=== PATIENT | female | born 1955 | race Caucasian/White ===

== ENCOUNTER → 2018-05-18 12:38 | Outpatient (CLI) | payer OTHER, SELFPAY ==
[2018-05-18 14:28] LABS: Vitamin D,25 Hydroxy 20.5 ng/mL (29.95-100.01)
[2018-05-18 14:30] LABS: BUN 26 mg/dL (7-18); BUN/Creat Ratio 33.2 RATIO (10-20); Creatinine, Serum 0.78 mg/dL (0.55-1.02); EST Glomerular Filtration Rate 79 mL/min (>60); Est Glom Filt Rate - Afr Amer 96 mL/min (>60); Glucose 100 mg/dL (74-106); Protein, Total 7.8 g/dL (6.4-8.2)
[2018-05-18 14:31] LABS: ALB/GLOB Ratio 1.1 RATIO (0.9-2.4); AST(SGOT) 18 U/L (15-37); Alanine Aminotransfer ALT/SGPT 32 U/L (13-56); Alkaline Phosphatase 101 U/L (45-117); Anion Gap 6 (5-15); Calcium,Total 8.9 mg/dL (8.5-10.1); Chloride 105 mmol/L (98-107); Cholesterol 246 mg/dL (200); Free T3 3.6 pg/mL (2.18-3.98); Globulin 3.8 g/dL (2.2-4.2); High Density Lipoprotein 94 mg/dL; Potassium 4.2 mmol/L (3.5-5.1); Sodium Level 142 mmol/L (136-145); T4 Free Direct 0.79 ng/dL (0.76-1.46); Thyroid Stim Hormone (TSH) 0.99 uIU/mL (0.358-3.74); Triglycerides 49 mg/dL; Very Low Density Lipoprotein 10 mg/dL (5-40)
== END ==
PROVIDERS: Family Provider Family Medicine; PCP Family Medicine; Referring Provider Family Medicine; Visit Provider Family Medicine
DX: E04.1 Nontoxic single thyroid nodule (principal); R63.5 Abnormal weight gain; Z13.220 Encounter for screening for lipoid disorders; M99.01 Segmental and somatic dysfunction of cervical region
CPT/HCPCS: 36415; 80053; 80061; 82306; 84439; 84443; 84481

== ENCOUNTER → 2018-06-06 15:28 | Outpatient (CLI) | payer OTHER, SELFPAY ==
--- NOTE | 2018-06-06 15:30 | US_ITS ---
STUDY: THYROID ULTRASOUND REASON FOR EXAM: Female, 62 years old. Thyroid nodule. TECHNIQUE: Ultrasound evaluation of the thyroid was performed with real-time and static smith-scale imaging. COMPARISON: None. FINDINGS: RIGHT LOBE: The right lobe of the thyroid gland measures 4.2 x 1.5 x 1.3 cm. There is a homogeneous echotexture. There are no demonstrated solid, cystic or complex lesions. LEFT LOBE: The left lobe of the thyroid gland measures 5.1 x 3.5 x 2.9 cm. There is a 4.2 x 2.9 x 2.7 cm complex nodule that is predominantly solid within the left lobe. There appear to be one or 2 microcalcifications. There is mild increased internal vascularity. ISTHMUS: The isthmus measures 3.0 mm. The regional lymph nodes are normal. US/Thyroid IMPRESSION: 4.2 x 2.9 x 2.7 cm predominantly solid nodule within the left lobe of the gland. Electronically Signed: Rose Mary Slaughter MD at 17:24 EST Tel , Service support ,
== END ==
LOC: US 15:29
PROVIDERS: Family Provider Family Medicine; PCP Family Medicine; Referring Provider Family Medicine; Visit Provider Family Medicine
DX: E04.1 Nontoxic single thyroid nodule (principal)
CPT/HCPCS: 76536

== ENCOUNTER → 2018-10-12 16:56 | Outpatient (CLI) | payer OTHER, SELFPAY ==
[2018-10-12 18:02] LABS: Thyroid Stim Hormone (TSH) 1.79 uIU/mL (0.358-3.74)
== END ==
PROVIDERS: Family Provider Family Medicine; PCP Family Medicine; Referring Provider Otolaryngology; Visit Provider Otolaryngology
DX: D44.0 Neoplasm of uncertain behavior of thyroid gland (principal)
CPT/HCPCS: 36415; 84443

== ENCOUNTER 2018-12-07 18:32 | Emergency (ER) | payer OTHER, SELFPAY ==
[2018-12-07 18:33] VITALS: BP 118/83; PULSE 82; RESP 16; TEMP 36.2; O2SAT 100; BMI 29.2
[2018-12-07] MEDS: Lidocaine/Epi/Tetracaine 50 ML 1 APPLIC TOPICAL (19:20)
[2018-12-07] MEDS: Diphth,Pertuss(Acell),Tet Vac 0.5 ML Vial IM (19:26)
--- NOTE | 2018-12-07 19:32 | ED.DCSUM_ITS ---
- ER Visit Summary Date of Service: 12/07/18 Chief Complaint: Foreign body right foot History of Present Illness: The patient is a 62 F who presents with a foreign body in her right foot that occurred today. Patient states she was running across her deck when a wooden splinter went into the bottom of her right foot. Patient was barefoot at the time. Patient states she was unable to remove the foreign body. Patient is unsure of her last tetanus. Patient states her pain is worse with ambulation and improves with Tylenol. Patient describes her pain as a burning. Physical Examination: Vital signs are stable. Patient is afebrile. Patient is in no acute distress. Musculoskeletal exam reveals a puncture wound over the plantar aspect of the right foot. There is no active bleeding noted. Sensation was intact to light touch in all digits. Capillary refill is less than 2 s econds in all digits. Pedal pulses are equal bilaterally. There is full range of motion of the right lower extremity. There are no deformities noted. Emergency Department Course and Treatment: Patient was given a tetanus booster. LET gel was applied. The puncture wound was anesthetized 1% lidocaine locally. The foreign body was removed with hemostats. The puncture wound was opened with scissors. It was left open to continue to drain. Bacitracin dressing was applied. Patient was given a prescription for Keflex. Patient was instructed to follow-up with her primary care physician in 5 to 7 days. Patient understood and was agreeable with the plan. All questions were answered. Disposition: Discharge home Impression: Foreign body right foot This note was generated with [employer] dictation software. It may contain incorrect words, spelling, and punctuation that were not noted in review of the chart prior to signing ED Disposition - Plan for ED Patient: Disposition: Home or Assisted Living Diagnosis: Foreign body in right foot Instructions: FOREIGN BODY, Soft Tissue [Removed] Prescriptions: Cephalexin [Keflex] 500 mg PO Q6 #40 cap Prescription Printed Referrals: Chris Shaw DO [Primary Care Provider] - 5-7 Days
[2018-12-07 21:11] VITALS: RESP 16
== END 2018-12-07 21:12 | disposition home or self-care (01) ==
PROVIDERS: Emergency Provider Emergency Medicine; Family Provider Family Medicine; PCP Family Medicine
DX: S91.341A Puncture wound with foreign body, right foot, initial encounter (principal); W45.8XXA Other foreign body or object entering through skin, initial encounter; Y93.9 Activity, unspecified; Y92.9 Unspecified place or not applicable; Y99.9 Unspecified external cause status; Z23 Encounter for immunization; G47.419 Narcolepsy without cataplexy; M79.7 Fibromyalgia; G47.30 Sleep apnea, unspecified; Z79.899 Other long term (current) drug therapy
CPT/HCPCS: 90715; 99283

== ENCOUNTER → 2022-11-26 | Outpatient (CLI) | payer MEDICARE, BC, SELFPAY ==
--- NOTE | 2022-11-26 06:45 | ECHOCS_ITS ---
Reason For Study: Chest Pain Procedure This was a 2D Doppler, Color Flow transthoracic echocardiogram. The study was technically difficult. Contrast injection was performed. Exam performed in department. Left Ventricle Normal LV size. Left ventricular systolic function is normal. The estimated ejection fraction is 60 %. Normal diastology for age. No regional wall motion abnormalities noted. Right Ventricle Normal RV size. Normal systolic function. Atria The left and right atria are normal. Mitral Valve The mitral valve is structurally normal. No prolapse or stenosis seen. Trivial mitral valve insufficiency. Tricuspid Valve Normal tricuspid valve. Mild (1+) tricuspid valve insufficiency. Right ventricular systolic pressure estimated to be 26 mmHg. Aortic Valve Trisinus/trileaflet aortic valve. Mild focal aortic valve calcification. There is no aortic stenosis. Pulmonic Valve The pulmonic valve is not well visualized. Trivial pulmonic valve insufficiency. Great Vessels Mild atherosclerosis of the ascending aorta. Normal sized aortic root. Pericardium/Pleural No pericardial effusion. Medication 22 gauge I.V. with prn adaptor inserted into right arm. Diluted definity 2.5ml given slow IV push to enhance endocardial definition. MMode/2D Measurements & Calculations LVIDd: 3.7 cm IVSd: 0.52 cm Ao root diam: 2.4 cm LVIDs: 2.7 cm LVPWd: 0.53 cm LA dimension: 3.2 cm RVDd: 3.1 cm FS: 27.1 % LAV(MOD-bp): 41.7 ml LVAd ap4: 27.7 cm2 SV(MOD-sp4): 61.2 ml LAV(MOD-bp) Indexed: 22.7 ml/m2 LVLd ap4: 7.1 cm LAV(MOD-sp2): 37.0 ml EDV(MOD-sp4): 86.6 ml LAV(MOD-sp4): 42.5 ml EDV(sp4-el): 92.1 ml LVAs ap4: 13.2 cm2 LVLs ap4: 5.7 cm ESV(MOD-sp4): 25.4 ml ESV(sp4-el): 26.0 ml EF(MOD-sp4): 70.7 % EF(sp4-el): 71.7 % SV(sp4-el): 66.1 ml LA A4 area: 17.1 cm2 RA A4 area: 12.5 cm2 TAPSE: 1.7 cm Time Measurements MV dec time: 0.22 sec Doppler Measurements & Calculations MV E max cedric: 88.0 cm/sec Lat Peak E' Cedric: 11.3 cm/sec Med Peak E' Cedric: 8.7 cm/sec MV A max cedric: 122.5 cm/sec E/E' lat: 7.8 E/E' med: 10.1 MV E/A: 0.72 MV V2 max: 143.9 cm/sec MV P1/2t max cedric: 92.8 cm/sec Ao V2 max: 137.3 cm/sec MV max P.3 mmHg MV P1/2t: 73.2 msec Ao max P.6 mmHg MV V2 mean: 73.3 cm/sec Ao V2 mean: 89.1 cm/sec MV mean P.6 mmHg MV dec slope: 371.4 cm/sec2 Ao mean P.7 mmHg MV V2 VTI: 27.8 cm MVA(P1/2t): 3.0 cm2 Ao V2 VTI: 32.5 cm AV (velocity ratio): 0.81 LV V1 max: 109.3 cm/sec PA V2 max: 85.4 cm/sec TR max cedric: 238.3 cm/sec LV V1 max P.8 mmHg TR max P.7 mmHg LV V1 mean P.8 mmHg LV V1 mean: 78.1 cm/sec LV V1 VTI: 26.4 cm ECHO/Echo Complete W/ Contrast Interpretation Summary The estimated ejection fraction is 60 %. Mild (1+) tricuspid valve insufficiency. The study was technically difficult. Contrast injection was performed. Ordering Physician: Ange Barrera Referring Physician: Ange Barrera Performed By: Joshua Oneill [facility]
--- NOTE | 2022-11-27 12:07 | STRESSREP ---
Stress Test Report Date: 11/26/2022 Procedure: Exercise tolerance test/imaging study Indications: Chest pain Consent: Per the patient Procedure: The patient exercised on a Kishore protocol for 5 minutes achieving a peak heart rate of 151 bpm (98% predicted maximal heart rate) with a peak blood pressure 168/80 mmHg and a peak MET capacity of 7.0 METs. The baseline ECG demonstrated sinus rhythm. The peak exercise ECG demonstrated no ischemic changes. There were no cardiac dysrhythmias pretest, during exercise, or recovery. The functional capacity was considered average. There was no complaint of chest discomfort during exercise or recovery. The examination was discontinued secondary to target heart rate being achieved. The patient was injected with 11.1 mCi of technetium 99m Cardiolite and subsequently rest SPECT Cardiolite nuclear imaging was obtained in the horizontal long, vertical long, and short axis views. Post-exercise, the patient was injected with 34.2 mCi of technetium 99m Cardiolite and subsequently stress SPECT Cardiolite nuclear imaging was obtained in the horizontal long, vertical long, and short axis views. A gated Cardiolite study at peak stress was obtained. Rest and stress SPECT Cardiolite nuclear imaging status post realignment, normalization, and attenuation correction, demonstrates the appearance of relative uniform tracer uptake and myocardial perfusion appearing within normal limits. There is end systolic thickening and brightening. The gated Cardiolite study demonstrates myocardial thickening and inward wall motion. The reported LVEF is 77%. Impression: 1. Technically adequate (percent predicted maximal heart rate greater than 85%) exercise tolerance test 2. Peak exercise ECG with no ischemic changes 3. There were no cardiac dysrhythmias pretest, during exercise, or recovery 4. Rest and stress SPECT Cardiolite nuclear imaging demonstrate relative uniform tracer uptake and myocardial perfusion appearing within normal limits. 5. The gated Cardiolite study reports an LVEF of 77%. This note was generated with [employer] software. It may contain incorrect words, spelling, and punctuation that were not noted in checking the note before signing.
== END | disposition home or self-care (01) ==
PROVIDERS: PCP Student in an Organized Health Care Education/Training Program; Referring Provider Internal Medicine Cardiovascular Disease; Visit Provider Internal Medicine Cardiovascular Disease
DX: R07.9 Chest pain, unspecified (principal); R06.09 Other forms of dyspnea
CPT/HCPCS: 78452; 93017; 93306; A9500; Q9957; A4216; C8929

== ENCOUNTER → 2023-02-01 | Outpatient (CLI) | payer MEDICARE, BC, SELFPAY ==
--- NOTE | 2023-02-01 13:50 | CT_ITS ---
STUDY: CT CHEST WITHOUT CONTRAST REASON FOR EXAM: Female, 67 years old. UNSTABLE ANGINA. Cardiac over read examination. RADIATION DOSAGE (If Supplied By Facility): CTDIvol = ( 12.19 ) mGy, DLP = ( 195.04 ) mGycm TECHNIQUE: Transaxial imaging was performed without the administration of intravenous contrast material. Individualized dose optimization techniques were used for this CT. COMPARISON: No relevant priors. FINDINGS: CHEST The lungs are normal. There is no demonstrated pleural abnormality. There are mild calcifications of the coronary arteries. There are small lymph nodes within the mediastinum, which are normal in size and morphology most compatible with reactive lymph hyperplasia. Normal hilar regions. Normal unenhanced pulmonary arteries. There is atherosclerotic calcification of the aortic arch. Normal osseous structures. Small hiatal hernia. CT/Limited Chest CT Cardiac Only IMPRESSION: Mild degree of coronary artery calcification. Electronically Signed: Keegan Butcher MD at 15:36 EDT ,
--- NOTE | 2023-02-01 14:46 | CA.SCORE ---
Calcium Scoring Date of Study:: 02/01/23 Indications Indications: Family history of heart disease Coronary Calcium Scoring: High-resolution Computed Tomographic imaging of the chest was performed on [02/01/2023], with particular attention paid to the coronary arteries. Images from the examination were analyzed for the presence and extent of coronary artery calcification , using coronary calcium quantification software. The patient tolerated the procedure well and there were no complications. The results of the coronary calcification analysis are provided below. Findings Coronary Artery Left Main (LM): 0 Left Anterior Descending (LAD): 0 Left Circumflex (LCX): 0 Right Coronary Artery (RCA): 0 Total Agatston Score: 0 Percentile Rankin Calcium Scoring Interpretation: Different methods to categorize the overall amount of coronary plaque. Overall amount CAC SIS Visual of coronary plaque P1 Mild -100 <2 1-2 vessels with mild amount of plaque P2 Moderate 101-300 3-4 1-2 vessels with moderate amount, 3 vessels with mild amount of plaque P3 Severe 301-999 5-7 3 vessels with moderate amount, 1 vessel with severe amount of plaque P4 Extensive >1000 >8 2-3 vessels with severe amount of plaque Conclusion: No significant atherosclerotic plaquing noted.
== END | disposition home or self-care (01) ==
PROVIDERS: PCP Student in an Organized Health Care Education/Training Program; Referring Provider Student in an Organized Health Care Education/Training Program; Visit Provider Student in an Organized Health Care Education/Training Program
DX: I20.0 Unstable angina (principal)
CPT/HCPCS: 75571; 76380

== ENCOUNTER → 2023-11-24 | Outpatient (CLI) | payer MEDICARE, BC, SELFPAY | END | disposition home or self-care (01) | LOC: PSN 12:56 | PROVIDERS: PCP Student in an Organized Health Care Education/Training Program; Referring Provider Student in an Organized Health Care Education/Training Program; Visit Provider Student in an Organized Health Care Education/Training Program | DX: Z87.891 Personal history of nicotine dependence (principal) | CPT/HCPCS: 94060; 94726; 94729 ==